=== PATIENT | male | born 1935 | race Caucasian/White ===

== ENCOUNTER 2016-09-11 08:19 | Observation (INO) | payer MEDICARE ==
[~2016-09-11] VITALS: Ht 167.6 cm; Wt 72.4 kg
[~2016-09-11 08:19] MED LIST: ARIC10TA2 PO; ASPI-110 PO; CART120C PO; ICAPCAP PO; MULT-65 PO; NAME10TA PO; PLAV75TA29 PO; PRAV40TA2 PO; SYSTSOL15 EACH EYE
[2016-09-11] MEDS ORDERED: CHLORHEXIDINE GLUCONATE 2 % 1 PACK (2 CLOTHS) TOPICAL PRN (08:45)
[2016-09-11] MEDS ORDERED: METOPROLOL TARTRATE 25 MG TAB PO PRN (08:45)
[2016-09-11] MEDS ORDERED: LACTATED RINGER'S 1000 ML IV PRN ×2 (08:45→16:00)
[2016-09-11] MEDS ORDERED: INSULIN HUMAN REGULAR 1,000 UNITS/10 ML VIAL SQ PRN (08:45)
[2016-09-11] MEDS ORDERED: ceFAZolin 2 GM PREMIX 50 ML IV SCH (08:45)
[2016-09-11] MEDS ORDERED: SODIUM CHLORID 0.9% 500 ML IV PRN (08:45)
[2016-09-11 08:54] VITALS: BP 143/66; PULSE 54; RESP 18; TEMP 97.7; O2SAT 96
[2016-09-11] MEDS ORDERED: ACETAMINOPHEN 1000 MG/100 ML VIAL IV SCH (09:45)
[2016-09-11] MEDS ORDERED: FAMOTIDINE 20 MG/2 ML VIAL ONE (11:57)
[2016-09-11] MEDS ORDERED: MIDAZOLAM HCL 2 MG/2 ML VIAL ONE (11:57)
[2016-09-11] MEDS ORDERED: PHENYLEPH/NS 1000 MCG/10 ML SYR IV ONE (13:12)
[2016-09-11] MEDS ORDERED: PROPOFOL 200 MG/20 ML AMP IV ONE (13:12)
[2016-09-11] MEDS ORDERED: ePHEDrine/NS 25 MG/5 ML SYR IV ONE (13:12)
[2016-09-11] MEDS ORDERED: LACTATED RINGER'S 1000 ML INJ 1,000 ML IV ONE (13:13)
[2016-09-11] MEDS ORDERED: ONDANSETRON HCL 4 MG/2 ML VIAL IV PUSH ONE (13:13)
[2016-09-11] MEDS ORDERED: ceFAZolin INJ 1,000 MG VIAL IV ONE (13:20)
[2016-09-11] MEDS ORDERED: BUPIVACAINE/EPINEPHRINE 0.5% PF 30 ML VIAL INFIL ONE (13:23)
[2016-09-11] MEDS ORDERED: SUGAMMADEX SODIUM 200 MG/2 ML VIAL IV PUSH ONE ×2 (14:18)
[2016-09-11] MEDS ORDERED: fentaNYL CITRATE 250 MCG/5 ML AMP ONE (14:52)
[2016-09-11] MEDS ORDERED: DO NOT ADM ANY ANTICOAGULANT DRUGS PRN (15:15)
[2016-09-11] MEDS ORDERED: oxyCODONE/ACETAMINOPHEN 5 MG/325 MG TAB PO PRN ×2 (16:00)
[2016-09-11] MEDS ORDERED: KETOROLAC TROMETHAMINE 30 MG/ML (IVP) VIAL IV PUSH ONE (16:00)
[2016-09-11] MEDS ORDERED: SODIUM CHLORIDE 0.9% FLUSH 10 ML FLUSH IV FLUSH PRN (16:00)
[2016-09-11] MEDS ORDERED: ONDANSETRON HCL 4 MG/2 ML VIAL IV PRN (16:00)
[2016-09-11] MEDS ORDERED: MORPHINE SULFATE 4 MG/ML INJ IV PRN ×2 (16:00)
--- NOTE | 2016-09-11 16:28 | PD.OP ---
cc: Arnold Vyas MD Operative Report Date of Surgery: Sep 11, 2016 Preoperative Diagnosis: Carcinoma of the pancreas Postoperative Diagnosis: Carcinoma of the pancreas Procedure: Diagnostic laparoscopy Anesthesia: Gen. endotracheal Surgeon: Arnold Vyas Photograph Retoucher(s): Gordo Bhatia Shariati, MS3 Operation and Findings: Operative findings: The patient was found to have a 4.5-5 cm tumor in the distal body and tail of the pancreas with localized extension into the transverse colon mesentery. There is no evidence of metastatic disease other than the localized extension into the mesentery. Operative procedure: The patient was brought to the operating room and after satisfactory general endotracheal anesthesia obtained, the abdomen was prepped and draped in usual sterile fashion. 0.5% Marcaine with epinephrine was used after the skin for local anesthesia. A skin incision was made in the previous lower midline incision below the umbilicus carried down through the subcutaneous tissue the cautery being used for hemostasis. Incision was deepened to the anterior fascia which was tented and incised. The muscles were then and the transversalis and peritoneum were tented and incised with care being taken not to injure the underlying viscera. The opening was dilated to finger and no adhesions were encountered. A GelPort was then placed within the peritoneal cavity. The balloon was engaged and the abdomen insufflated to 15 mmHg using carbon dioxide. A camera was inserted and visceral injury inspected for, with none being identified. Under direct visualization 3 other 5 ports were placed in the abdomen on the left and right side. The greater curve of the stomach was identified and elevated anteriorly. With proper retraction being placed on the omentum the lesser sac was entered by taking down the omentum for approximately 5 or 6 cm using the harmonic scalpel. Once the lesser sac had been clearly identified further omentum was taken down to allow further retraction of the stomach anteriorly and visualization of the pancreatic tumor was undertaken with minimal difficulty. The area around the tumor was explored thoroughly and the tumor was found to be proximally 4.5-5 cm in diameter which was larger than previously seen on the MR scan. There was also significant local infiltration of the transverse colon mesentery. The area was further explored and the extension into the mesentery was seen to extend somewhat more posteriorly to be contiguous with the tumor which was extending posteriorly as well. At that point the decision was made to abort the procedure in view of the localized extension of this 5 cm known adenocarcinoma. Hemostasis was strictly assured after which the carbon dioxide was vented as completely as possible the atmosphere the ports removed. The 12 mm fascial defect was closed with interrupted 0 Vicryl suture and skin closed with interrupted 4-0 PDS subcuticular stitches. Steri-Strips were applied and the patient then awakened and taken from the operating room, satisfactory condition, having tolerated the procedure without problem. Estimated blood loss was less than 10 mL's. Instrument, sponge, needle counts were reported as being correct 2 at the end of the procedure. Arnold Vyas MD Sep 11, 2016 16:28
[2016-09-11 16:57] VITALS: BP 138/66; PULSE 54; RESP 17; TEMP 95.2; O2SAT 95
[2016-09-11 20:00] VITALS: BP 149/66; PULSE 54; RESP 16; TEMP 97.2; O2SAT 98
[2016-09-11] MEDS: SODIUM CHLORIDE 0.9% FLUSH 10 ML FLUSH IV FLUSH SCH (21:11)
[2016-09-12] VITALS: BP 131/61; PULSE 64; RESP 18; TEMP 97.5; O2SAT 94
[2016-09-12 08:00] VITALS: BP 138/64; PULSE 66; RESP 17; TEMP 97.3; O2SAT 93
[2016-09-12] MEDS: SODIUM CHLORIDE 0.9% FLUSH 10 ML FLUSH IV FLUSH SCH (09:00)
[2016-09-12 12:00] VITALS: BP 136/65; PULSE 65; RESP 18; TEMP 100; O2SAT 92
--- NOTE | 2016-09-12 13:58 | HHI.PR ---
Subjective Subjective Notes No complaints; tolerating a diet; passing flatus. Denies pain. Objective Vitals/I&O Vital Signs Date Time Temp Pulse Resp B/P Pulse Ox O2 Delivery O2 Flow Rate FiO2 09/12/16 12:00 100.0 65 18 136/65 92 09/11/16 16:30 Nasal Cannula 2 Cardiovascular: Regular Lungs: Clear Abdomen: Non-distended, Non-tender, Post-op tenderness, BS normal A/P Assessment and Plan S/P diagnostic laparoscopy; doing very well. Dx is locally extensive carcinoma of the pancreas. Will d/c to home and see back in 2 weeks. Arnold Vyas MD Sep 12, 2016 13:58
== END 2016-09-12 14:55 | disposition home or self-care (01) ==
LOC: INTOOBSV 08:21 → HSDI 08:21 → N07A 16:41
PROVIDERS: ADMIT Surgery; ATTEND Surgery
DX: C25.1 Malignant neoplasm of body of pancreas (principal); C25.2 Malignant neoplasm of tail of pancreas; C78.6 Secondary malignant neoplasm of retroperitoneum and peritoneum; I10 Essential (primary) hypertension; E78.5 Hyperlipidemia, unspecified; I73.9 Peripheral vascular disease, unspecified; I25.10 Atherosclerotic heart disease of native coronary artery without angina pectoris; I25.2 Old myocardial infarction; F03.90 Unspecified dementia, unspecified severity, without behavioral disturbance, psychotic disturbance, mood disturbance, and anxiety; K21.9 Gastro-esophageal reflux disease without esophagitis; Z87.891 Personal history of nicotine dependence; Z95.5 Presence of coronary angioplasty implant and graft; Z88.2 Allergy status to sulfonamides; Z91.041 Radiographic dye allergy status; Z91.013 Allergy to seafood; Z79.82 Long term (current) use of aspirin; Z79.02 Long term (current) use of antithrombotics/antiplatelets
CPT/HCPCS: 00790; 49320; 86850; 86900; 86901; 86920; G0378; J0690; J1885; J2250; J2370; J2405; J3010; J7120